=== PATIENT | male | born 1985 | race Caucasian/White ===

== ENCOUNTER 2023-09-10 01:27 | Emergency (ER) | payer MEDICAID ==
[~2023-09-10] VITALS: Ht 172.7 cm; Wt 113.0 kg
[2023-09-10 01:35] VITALS: BP 137/64; PULSE 92; RESP 18; TEMP 99; O2SAT 94
== END 2023-09-10 02:50 | disposition left against medical advice (07) ==
LOC: ER 01:27
DX: M79.641 Pain in right hand (principal); Z53.21 Procedure and treatment not carried out due to patient leaving prior to being seen by health care provider